=== PATIENT | male | born 1985 | race African-American/Black ===

== ENCOUNTER 2020-02-18 14:36 | Emergency (ER) | payer SELFPAY ==
[~2020-02-18] VITALS: Ht 177.8 cm; Wt 104.3 kg
[2020-02-18 14:41] VITALS: BP 150/98
--- NOTE | 2020-02-18 15:14 | Emergency Room Report ---
History of Present Illness General Chief Complaint: Male Urogenital Problems Source: Patient Present Illness HPI 34-year-old male with no significant past medical history presents to the emergency department complaining of erythema and itching with some mild swelling to the tip of his penis progressive x1 week. Patient is uncircumcised. Patient denies fevers or chills. He denies pain. He denies sores, testicular pain or tenderness, swollen tender lymph nodes or concern for STI. Patient states that his symptoms did not have an onset after intercourse. Patient reports he first noticed his symptoms when he was attempting to have intercourse for which she was unsuccessful with. Patient states that he has tenderness with retracting the foreskin. He reports after urination he does have some excess dribbling of urine temporarily. Patient denies abdominal pain or tenderness he denies hematuria or dysuria. Patient denies urinary frequency or low back pain. No other aggravating or relieving factors at this time. Allergies: Coded Allergies: No Known Allergies (Unverified , 12/17/14) COVID-19 Screening Contact w/high risk pt: No Experienced COVID-19 symptoms?: No COVID-19 Testing performed CLEAR COAT SPRAYER: No Patient History Past Medical History: see triage record Past Surgical History: none Pertinent Family History: none Reviewed Nursing Documentation: PMH: Agreed; PSxH: Agreed Nursing Documentation-PMH Past Medical History: No Stated History Review of Systems All Other Systems: negative except mentioned in HPI Physical Exam Vital Signs Date Time Temp Pulse Resp B/P (MAP) Pulse Ox O2 Delivery O2 Flow Rate FiO2 02/18/20 14:40 99.0 75 16 150/98 (115) 97 Room Air Sp02 EP Interpretation: reviewed, normal General Appearance: no apparent distress, alert, GCS 15, non-toxic Head: normocephalic, atraumatic Eyes: bilateral eye normal inspection, bilateral eye PERRL ENT: hearing grossly normal, normal voice Neck: full range of motion Respiratory: lungs clear, normal breath sounds, speaking full sentences Cardiovascular #1: regular rate, rhythm Gastrointestinal: normal bowel sounds, non tender, soft Rectal: deferred Genitourinary: normal inspection, no CVA tenderness, scrotum normal, other - No testicular pain, swelling or tenderness. There is erythema and mild soft tissue swelling of the distal foreskin and glans penis. Tension with attempts to retract foreskin. No obvious discharge. No open sores or rashes. No swollen tender lymph nodes. Musculoskeletal: normal range of motion, gait/station normal, non-tender Neurologic: alert, motor strength/tone normal, oriented x3, sensory intact, responsive, speech normal Psychiatric: judgement/insight normal Skin: other - There is erythema and mild soft tissue swelling of the distal foreskin and glans penis. Tension with attempts to retract foreskin. No open sores or rashes. No swollen tender lymph nodes. Lymphatic: no adenopathy Medical Decision Making PA Attestation Dr. Alves Is my supervising Physician whom patient management has been discussed with. Diagnostic Impression: Primary Impression: Balanoposthitis Additional Impression: Phimosis of penis ER Course 34-year-old male with no significant past medical history presents to the emergency department complaining of erythema and itching with some mild swelling to the tip of his penis progressive x1 week. Patient is uncircumcised. Patient denies fevers or chills. He denies pain. He denies sores, testicular pain or tenderness, swollen tender lymph nodes or concern for STI. Patient states that his symptoms did not have an onset after intercourse. Patient reports he first noticed his symptoms when he was attempting to have intercourse for which she was unsuccessful with. Patient states that he has tenderness with retracting the foreskin. He reports after urination he does have some excess dribbling of urine temporarily. Patient denies abdominal pain or tenderness he denies hematuria or dysuria. Patient denies urinary frequency or low back pain. No other aggravating or relieving factors at this time. Ddx considered but are not limited to Balanitis, UTi , Urethritis, LGV, STI, Stone, Cystitis, prostatitis Rn Clinical Review for PE was: boardmarker RICCARDO Vital signs: are WNL, pt. is afebrile H&PE are most consistent with Balanitis and concern for secondary bacterial infection due to urinary retention from inflammatory phimosis ORDERS: - UA : Most indicative of contamination: presence of equal amounts of bacteria and squamous cells, no elevation in inflammatory markers, nitrite negative. ED INTERVENTIONS: - None required at this time. D/w pt. results of his laboratory studies. Discussed with patient self-care at home which includes increase in personal hygiene as well as topical antifungals and steroid cream. Patient is to follow- up with primary care provider. Patient is given strict ED return precautions for worsening or new symptoms. Patient is instructed to avoid sexual intercourse until his symptoms are resolved. Also discussed with patient that his partner may need to be treated for fungal infection as well. DISCHARGE: At this time pt. is stable for d/c to home. Will provide printed patient care instructions, and any necessary prescriptions. Care plan and follow up instructions have been discussed with the patient prior to discharge. Labs Test 02/18/20 15:10 Urine Color Pale yellow Urine Appearance Clear Urine pH 5 (4.5-8.0) Urine Specific [place] 1.025 (1.005-1.035) Urine Protein Negative (NEGATIVE) Urine Glucose (UA) 4+ (NEGATIVE) Urine Ketones Negative (NEGATIVE) Urine Blood Negative (NEGATIVE) Urine Nitrite Negative (NEGATIVE) Urine Bilirubin Negative (NEGATIVE) Urine Urobilinogen Normal MG/DL (0.0-1.0) Urine Leukocyte Esterase 1+ (NEGATIVE) Urine RBC 0-2 /HPF (0 - 0) Urine WBC 2-4 /HPF (0 - 0) Urine Squamous Epithelial Cells Occasional /LPF Urine Bacteria Few /HPF (NONE) Urine Mucus Few /LPF (NONE/OCC) Last Vital Signs Date Time Temp Pulse Resp B/P (MAP) Pulse Ox O2 Delivery O2 Flow Rate FiO2 02/18/20 14:41 99.0 75 16 150/98 97 Room Air Disposition: HOME, SELF-CARE Condition: Stable Scripts Ketoconazole/Hydrocortisone (Hydrocort 2.5%-Ketoconazole 2%) 30 Gm Cream..g. 1 APPLIC TP BID, #30 GM Prov: Mariza Kumar 02/18/20 Referrals: T[facility] Campuzano [facility]. [facility] + [facility] Patient Instructions: Balanitis Additional Instructions: Take medications as directed. --Avoid sexual intercourse until all your symptoms have resolved. Your partner may need to be treated for yeast infection to prevent recurrence of symptoms. Keep areas dry and clean as possible. Follow up with a Primary Care Provider in 3-5 days, even if your symptoms have resolved. --Please review list of primary care clinics, if you do not already have a primary care provider Return sooner to ED if new symptoms occur, or current symptoms become worse. - Please note that this Emergency Department Report was dictated using Dragon low altitude air defense gunner technology software, occasionally this can lead to erroneous entry secondary to interpretation by the dictation equipment. Mariza Kumar Feb 18, 2020 15:14
[2020-02-18 15:33] LABS: APPEARANCE,URINE CLEAR; BILIRUBIN, URINE NEGATIVE (NEGATIVE); COLOR,URINE PALE YELLOW; GLUCOSE, URINE (UA) 4+ (NEGATIVE); KETONES,URINE NEGATIVE (NEGATIVE); PH,URINE 5 (4.5-8.0); PROTEIN,URINE NEGATIVE (NEGATIVE)
[2020-02-18 15:34] LABS: LEUKOCYTE ESTERASE ,URINE 1+ (NEGATIVE); NITRITE,URINE NEGATIVE (NEGATIVE); UROBILINOGEN,URINE NORMAL MG/DL (0.0-1.0)
[2020-02-18] MEDS ORDERED: HYDROCORT 2.5%-30 GM TP (15:57)
[2020-02-18 16:09] VITALS: BP 135/74
== END 2020-02-18 16:10 | disposition home or self-care (01) ==
LOC: EMR 15:15
DX: N47.6 Balanoposthitis (principal); N47.1 Phimosis
CPT/HCPCS: 81003; 99282